=== PATIENT | female | born 1965 | race Caucasian/White ===

== ENCOUNTER → 2017-11-04 | Outpatient (CLI) | payer OTHER ==
[~2017-11-04] MED LIST: IBUP100S; Prilosec2.5 MG; VENL25; ZESTORETIC 20-121 EA
[2017-11-05 09:52] LABS: G. vaginalis (DNA Probe) Positive (NEGATIVE); T. vaginalis (DNA Probe) Negative (NEGATIVE)
[2017-11-05 09:53] LABS: Candida species (DNA Probe) Negative (NEGATIVE)
[2017-11-06 11:16] LABS: HPV Genotype 16 Detected (NOTDET); HPV Genotype 18 Not Detected (NOTDET)
[2017-11-10 10:42] LABS: HPV High Risk Other Detected (NOTDET)
[2017-11-10 12:26] LABS: Source CERV/ENDOCERV
== END ==
LOC: LAB 13:29 → LAB SHORT 13:29
PROVIDERS: Registered Nurse
DX: Z12.4 Encounter for screening for malignant neoplasm of cervix (principal); N89.8 Other specified noninflammatory disorders of vagina
CPT/HCPCS: 87480; 87510; 87624; 87660; G0123

== ENCOUNTER → 2018-12-02 | Outpatient (CLI) | payer OTHER | LOC: LAB SHORT 09:03 → PLD 09:03 | DX: M79.9 Soft tissue disorder, unspecified (principal) | CPT/HCPCS: 88304 ==

== ENCOUNTER → 2019-06-12 | Outpatient (CLI) | payer OTHER ==
[2019-06-15 14:32] LABS: Stool Occult Bld Immuno 1 Negative (NEGATIVE)
== END ==
LOC: LAB 14:00 → LAB SHORT 14:00
PROVIDERS: Nurse Practitioner Family
DX: Z12.11 Encounter for screening for malignant neoplasm of colon (principal)
CPT/HCPCS: G0328

== ENCOUNTER → 2019-12-27 | Outpatient (CLI) | payer OTHER | END | disposition home or self-care (01) | LOC: LAB 18:57 → LAB SHORT 18:57 | DX: M65.4 Radial styloid tenosynovitis [de Quervain] (principal) | CPT/HCPCS: 87077; 87086; 87186 ==

== ENCOUNTER → 2021-04-11 | Outpatient (CLI) | payer OTHER ==
[2021-04-12 09:59] LABS: Candida species (DNA Probe) Negative (NEGATIVE); G. vaginalis (DNA Probe) Negative (NEGATIVE); T. vaginalis (DNA Probe) Negative (NEGATIVE)
== END | disposition home or self-care (01) ==
LOC: LAB SHORT 17:50 → LAB 17:50
PROVIDERS: Nurse Practitioner Family
DX: N89.8 Other specified noninflammatory disorders of vagina (principal)
CPT/HCPCS: 87070; 87205; 87480; 87510; 87660

== ENCOUNTER 2021-11-20 10:27 | Day surgery (SDC) | payer BC, OTHER ==
[~2021-11-20] VITALS: Ht 170.2 cm; Wt 65.4 kg
[2021-11-20] MEDS ORDERED: BUSP5 (10:44)
[2021-11-20] MEDS ORDERED: Cymbalta20 MG (10:45)
--- NOTE | 2021-11-20 11:05 | NUR ---
History, Chart, Medications and Allergies reviewed before start of procedure. Patient confirms NPO status and agrees with scheduled surgery. Patient States Post-Procedure ride home has been arranged.
--- NOTE | 2021-11-20 11:15 | NUR ---
History, Chart, Medications and Allergies reviewed before start of procedure. Patient confirms NPO status and agrees with scheduled surgery. Patient States Post-Procedure ride home has been arranged with .
--- NOTE | 2021-11-20 11:34 | NUR ---
11/20/21 1134 Mely Rhodes History, Chart, Medications and Allergies reviewed before start of procedure. Patient confirms NPO status and agrees with scheduled surgery. 3-LEAD EKG REVIEWED WITH PHYSICIAN PRIOR TO START OF PROCEDURE. MONITOR INTACT WITH CONTINUOUS PULSE OXIMETRY AND INTERMITTENT BP. PATIENT DETERMINED TO BE ASA APPROPRIATE FOR PROPOFOL SEDATION PRIOR TO START OF PROCEDURE BY POM PLACED O2 @3L N/C
--- NOTE | 2021-11-20 13:23 | NUR ---
Discharge instructions reviewed with patient. Patient verbalizes understanding. Copy given to patient to take home. TOLERATING WATER WELL, NO C/O. VSS. Discharged via wheelchair to private car for ride home.
== END 2021-11-20 13:35 | disposition home or self-care (01) ==
LOC: ORSCMMR 10:27 → ORD 11:30 → ORSCMMR 11:30
PROVIDERS: Student in an Organized Health Care Education/Training Program
PROC: 0DB58ZX Excision of Esophagus, Via Natural or Artificial Opening Endoscopic, Diagnostic (ICD-10-PCS; principal; 2021-11-20 11:30)
PROC: 0DBK8ZX Excision of Ascending Colon, Via Natural or Artificial Opening Endoscopic, Diagnostic (ICD-10-PCS; principal; 2021-11-20 11:30)
PROC: 0DB48ZX Excision of Esophagogastric Junction, Via Natural or Artificial Opening Endoscopic, Diagnostic (ICD-10-PCS; principal; 2021-11-20 11:30)
PROC: 0DBM8ZX Excision of Descending Colon, Via Natural or Artificial Opening Endoscopic, Diagnostic (ICD-10-PCS; principal; 2021-11-20 11:30)
DX: R13.10 Dysphagia, unspecified (principal); K21.9 Gastro-esophageal reflux disease without esophagitis; Z80.0 Family history of malignant neoplasm of digestive organs; Z86.010 Personal history of colon polyps; D12.2 Benign neoplasm of ascending colon; K57.30 Diverticulosis of large intestine without perforation or abscess without bleeding; K59.09 Other constipation; I10 Essential (primary) hypertension; M79.7 Fibromyalgia; Z79.899 Other long term (current) drug therapy; Z12.11 Encounter for screening for malignant neoplasm of colon; Z87.891 Personal history of nicotine dependence
CPT/HCPCS: 88305; J2704; J7120

== ENCOUNTER → 2022-10-24 | Outpatient (CLI) | payer BC, OTHER ==
[~2022-10-24] MED LIST changes: +BUSP5; +Cymbalta20 MG
== END | disposition home or self-care (01) ==
LOC: LAB 10:00 → LAB SHORT 10:00
DX: R30.0 Dysuria (principal)
CPT/HCPCS: 87077; 87086; 87186

== ENCOUNTER → 2022-12-18 | Outpatient (CLI) | payer BC, OTHER | END | disposition home or self-care (01) | LOC: LAB SHORT 13:23 → LAB 13:23 | DX: N87.9 Dysplasia of cervix uteri, unspecified (principal) | CPT/HCPCS: 88305 ==

== ENCOUNTER 2023-04-19 14:28 | Emergency (ER) | payer BC ==
[~2023-04-19] VITALS: Ht 170.2 cm; Wt 65.8 kg
[2023-04-19 15:04] LABS: BASOPHILS ABSOLUTE AUTO 0.01 K/mm3 (0.00-0.23); BASOPHILS PERCENT AUTO 0 % (0-2); EOSINOPHILS ABSOLUTE AUTO 0.03 K/mm3 (0.00-0.68); EOSINOPHILS PERCENT AUTO 1 % (0-6); Hematocrit 20.9 % (33.0-51.0); Hemoglobin 7.1 g/dL (11.5-16.0); IMMATURE GRAN ABSOLUTE AUTO 0.01 K/mm3 (0.00-0.10); IMMATURE GRAN PERCENT AUTO 0 % (0-1); LYMPHOCYTES ABSOLUTE AUTO 0.32 K/mm3 (0.84-5.20); LYMPHOCYTES PERCENT AUTO 8 % (21-46); MONOCYTES ABSOLUTE AUTO 0.44 K/mm3 (0.16-1.47); MONOCYTES PERCENT AUTO 11 % (4-13); Mean Corpuscular HGB 31.1 pg (26.0-34.0); Mean Corpuscular Volume 92 fL (80-100); Mean Platelet Volume 8.7 fL (9.1-12.4); NEUTROPHILS ABSOLUTE AUTO 3.22 K/mm3 (1.96-9.15); NEUTROPHILS PERCENT AUTO 80 % (41-73); Platelet Count 213 K/mm3 (150-400); RDW Coefficient Variation 13.8 % (11.7-14.2); RDW Standard Deviation 44.2 fL (35.1-46.3); Red Blood Cell Count 2.28 M/mm3 (3.80-5.20); White Blood Cell Count 4.03 K/mm3 (4.00-11.30)
[2023-04-19 15:24] LABS: Alanine Aminotransfer (ALT/SGP 16 U/L (12-78); Albumin, Blood 3.5 g/dL (3.4-5.0); Albumin/Globulin Ratio 1.2 (0.8-1.8); Alk Phos 105 U/L (50-136); Anion Gap 5 mmol/L (6-16); Aspartate Aminotrans (AST/SGOT 16 U/L (12-37); Bilirubin, Total 0.2 mg/dL (0.1-1.0); Blood Urea Nitrogen 19 mg/dL (8-24); Bun/Creatinine Ratio 16.5 (12.0-20.0); CO2, Blood 27 mmol/L (21-32); Calcium, Blood 8.5 mg/dL (8.5-10.1); Chloride, Blood 106 mmol/L (98-108); Creatinine, Blood 1.15 mg/dL (0.40-1.00); Glomerular Filtration Rate 55 (60-); Glucose, Blood 125 mg/dL (70-99); Potassium, Blood 3.8 mmol/L (3.5-5.5); Sodium, Blood 138 mmol/L (136-145); Total Protein, Blood 6.5 g/dL (6.4-8.2)
[2023-04-19] MEDS ORDERED: Buspirone HCl15 MG (16:04)
[2023-04-19] MEDS ORDERED: CYMBALTA20 M2 PO (16:05)
[2023-04-19] MEDS ORDERED: EZETIMIBE10 M6 PO (16:05)
[2023-04-19] MEDS ORDERED: BACL10 PO (16:06)
[2023-04-19] MEDS ORDERED: LISI20 PO (16:06)
[2023-04-19] MEDS ORDERED: OMEP20ER PO (16:08)
[2023-04-19] MEDS ORDERED: HYDR1TAB94 PO (18:23)
[2023-04-19] MEDS ORDERED: CEPHALEXIN500 MG PO (18:23)
[2023-04-19 18:30] VITALS: BP 129/79
== END 2023-04-19 18:34 | disposition home or self-care (01) ==
LOC: ER 14:28
PROVIDERS: Student in an Organized Health Care Education/Training Program
DX: L03.115 Cellulitis of right lower limb (principal); L02.415 Cutaneous abscess of right lower limb; M25.461 Effusion, right knee; D64.9 Anemia, unspecified; R79.82 Elevated C-reactive protein (CRP); R70.0 Elevated erythrocyte sedimentation rate; I10 Essential (primary) hypertension; C53.9 Malignant neoplasm of cervix uteri, unspecified; M79.7 Fibromyalgia; Z79.899 Other long term (current) drug therapy
CPT/HCPCS: 10160; 80053; 85025; 85651; 86140; 96365-59; 96375-59; 99283-25; J0690; J1170; J2405

== ENCOUNTER → 2024-03-12 | Outpatient (CLI) | payer BC ==
[~2024-03-12] MED LIST changes: +BACL10 PO; +Buspirone HCl15 MG; +CEPHALEXIN500 MG PO; +CYMBALTA20 M2 PO; +EZETIMIBE10 M6 PO; +HYDR1TAB94 PO; +LISI20 PO; +OMEP20ER PO
[2024-03-12 11:30] LABS: Source, Urine Clean Catch
[2024-03-12 12:52] LABS: Appearance, Urine Clear (Clear); Bilirubin, Urine Neg (Neg); Blood, Urine Neg (Neg); Color, Urine Yellow (P-Yellow); Glucose Qualitative, Urine Neg (Neg); Ketones, Urine Neg (Neg); Leukocyte Esterase, Urine Neg (Neg); Nitrite, Urine Neg (Neg); Protein, Urine Neg (Neg); Urobilinogen, Urine NORM (Normal)
[2024-03-18 13:13] LABS: HPV HIGH RISK BY TMA Not Detected; HPV SOURCE Cervical/Vag
== END | disposition home or self-care (01) ==
LOC: LAB SHORT 11:23 → LAB 11:23
PROVIDERS: Obstetrics & Gynecology
DX: Z01.419 Encounter for gynecological examination (general) (routine) without abnormal findings (principal); R30.0 Dysuria
CPT/HCPCS: 81003; 87624; G0123

== ENCOUNTER 2024-04-09 12:02 | Day surgery (SDC) | payer BC ==
[2024-04-09] VITALS (30 sets, daily range): BP systolic 105–140; BP diastolic 78–97
[~2024-04-09] VITALS: Ht 170.2 cm; Wt 60.6 kg
[~2024-04-09 12:02] MED LIST changes: +FERROUS GLUCON324 M2 PO; +Lactated Ringer's 1,000 ML IV SCH
--- NOTE | 2024-04-09 12:19 | NUR ---
Ambulatory in Day Surgery History, Chart, Medications and Allergies reviewed before start of procedure. Pre-Op teaching done. Pt verbalizes understanding. Patient States Post-Procedure ride home has been arranged.
[2024-04-09] MEDS ORDERED: propofoL 60 ML IV ONE (12:24)
--- NOTE | 2024-04-09 12:56 | NUR ---
04/09/24 1256 Jalen Vital CONFIRMED AND REVIEWED H&P, MEDCICATIONS, ALLERGIES, MEDICAL HISTORY, RESPIRATORY HISTORY, VITAL SIGNS, 3-LEAD EKG, CONSENTS, AND PHYSICIAN ORDERS. PATIENT CONFIRMS NPO STATUS AND AGREES WITH SCHEDULED PROCEDURE. MONITOR INTACT WITH CONTINUOUS PULSE OXIMETRY, CAPNOGRAPHY, 3-LEAD EKG, INTERMITTENT BP. SUPPLEMENTAL O2 TO BE TITRATED THROUGHOUT PROCEDURE TO MAINTAIN O2 SATURATION ABOVE 90%. PATIENT DETERMINED TO BE ASA APPROPRIATE FOR PROPOFOL SEDATION PRIOR TO START OF PROCEDURE BY DR. ORELLANA. Bite Block Placed.
--- NOTE | 2024-04-09 14:14 | NUR ---
Patient up to Ambulate independently. Gait steady. Discharge instructions reviewed with patient. Patient verbalizes understanding. Copy given to patient to take home. Discharged via wheelchair to private car for ride home.
== END 2024-04-09 14:16 | disposition home or self-care (01) ==
LOC: ORSCMMR 12:02 → ORSCSDS 12:45 → ORSCMMR 13:15 → ORSCSDS 15:15
DX: D50.9 Iron deficiency anemia, unspecified (principal); Z80.0 Family history of malignant neoplasm of digestive organs; Z86.010 Personal history of colon polyps; K59.04 Chronic idiopathic constipation; Z79.899 Other long term (current) drug therapy
CPT/HCPCS: 88305; 88342; J2704; J7120

== ENCOUNTER 2024-04-14 12:16 | Day surgery (SDC) | payer BC ==
[~2024-04-14] VITALS: Ht 170.2 cm; Wt 62.1 kg
[~2024-04-14 12:16] MED LIST changes: +Balanced Salt Epinephrine Irrigation Solution 500 mL IR SCH; -Lactated Ringer's 1,000 ML IV SCH; +Lidocaine HCl/Pf 1% 5 ML VIAL XX SCH; +Moxifloxacin HCL 0.5 MG/0.1 ML 0.4MLSYR LEFTEYE SCH; +NS 500 ML IV ONE; +PHENYLEPHRINE\\TROPICAMIDE\\TETRACAINE OPHTHALMIC DILATING SOLN LEFTEYE PRN; +Povidone-Iodine 450 DROP/30 ML Solution LEFTEYE SCH; +Povidone-Iodine 450 DROP/30 ML Solution ONE; +Tetracaine HCl/Pf 0.5% Opth Soln 4 ml ONE
[2024-04-14] MEDS ORDERED: Midazolam HCl 1MG / ML 2ML Vial ONE (12:33)
[2024-04-14] MEDS ORDERED: FentaNYL Citrate 50 MCG/ML 2 ML Injection ONE (12:33)
[2024-04-14] MEDS ORDERED: NS 500 ML IV ONE ×2 (13:05→13:42)
[2024-04-14] MEDS ORDERED: Erythromycin 0.5% Opth Oint 1 gm ONE (13:38)
[2024-04-14 14:20] VITALS: BP 122/79
== END 2024-04-14 14:05 | disposition home or self-care (01) ==
LOC: ORSCSDS 12:16
PROVIDERS: Student in an Organized Health Care Education/Training Program
PROC: 08RK3JZ Replacement of Left Lens with Synthetic Substitute, Percutaneous Approach (ICD-10-PCS; principal; 2024-04-14 13:30)
DX: H25.813 Combined forms of age-related cataract, bilateral (principal); I10 Essential (primary) hypertension; H53.022 Refractive amblyopia, left eye; K21.9 Gastro-esophageal reflux disease without esophagitis; F41.9 Anxiety disorder, unspecified; Z79.899 Other long term (current) drug therapy; Z79.60 Long term (current) use of unspecified immunomodulators and immunosuppressants
CPT/HCPCS: A9270; J2250; J3010; J7040; V2632

== ENCOUNTER 2024-04-20 11:44 | Day surgery (SDC) | payer BC ==
[~2024-04-20] VITALS: Ht 170.2 cm; Wt 61.3 kg
[~2024-04-20 11:44] MED LIST changes: -Moxifloxacin HCL 0.5 MG/0.1 ML 0.4MLSYR LEFTEYE SCH; +Moxifloxacin HCL 0.5 MG/0.1 ML 0.4MLSYR RIGHTEYE SCH; -PHENYLEPHRINE\\TROPICAMIDE\\TETRACAINE OPHTHALMIC DILATING SOLN LEFTEYE PRN; +PHENYLEPHRINE\\TROPICAMIDE\\TETRACAINE OPHTHALMIC DILATING SOLN RIGHTEYE PRN; -Povidone-Iodine 450 DROP/30 ML Solution LEFTEYE SCH; +Povidone-Iodine 450 DROP/30 ML Solution RIGHTEYE SCH
[2024-04-20] MEDS ORDERED: NS 500 ML IV ONE ×2 (12:24→12:46)
[2024-04-20] MEDS ORDERED: Midazolam HCl 1MG / ML 2ML Vial ONE ×2 (12:39→12:48)
[2024-04-20] MEDS ORDERED: Erythromycin 0.5% Opth Oint 1 gm ONE (12:59)
[2024-04-20 13:20] VITALS: BP 116/79
== END 2024-04-20 13:32 | disposition home or self-care (01) ==
LOC: ORSCSDS 11:44
PROVIDERS: Student in an Organized Health Care Education/Training Program
PROC: 08RJ3JZ Replacement of Right Lens with Synthetic Substitute, Percutaneous Approach (ICD-10-PCS; principal; 2024-04-20 13:00)
DX: H25.811 Combined forms of age-related cataract, right eye (principal); I12.9 Hypertensive chronic kidney disease with stage 1 through stage 4 chronic kidney disease, or unspecified chronic kidney disease; N18.9 Chronic kidney disease, unspecified; Z79.899 Other long term (current) drug therapy
CPT/HCPCS: A9270; J2250; J7040; V2632

== ENCOUNTER 2024-07-01 06:05 | Day surgery (SDC) | payer BC ==
[~2024-07-01] VITALS: Ht 170.2 cm; Wt 62.7 kg
[~2024-07-01 06:05] MED LIST changes: -Balanced Salt Epinephrine Irrigation Solution 500 mL IR SCH; -Lidocaine HCl/Pf 1% 5 ML VIAL XX SCH; -Moxifloxacin HCL 0.5 MG/0.1 ML 0.4MLSYR RIGHTEYE SCH; -NS 500 ML IV ONE; -PHENYLEPHRINE\\TROPICAMIDE\\TETRACAINE OPHTHALMIC DILATING SOLN RIGHTEYE PRN; -Povidone-Iodine 450 DROP/30 ML Solution ONE; -Povidone-Iodine 450 DROP/30 ML Solution RIGHTEYE SCH; -Tetracaine HCl/Pf 0.5% Opth Soln 4 ml ONE
[2024-07-01] MEDS ORDERED: Tranexamic Acid 100 ML IV ONE ×2 (06:20→09:43)
[2024-07-01] MEDS ORDERED: NS 50 ML IV ONE (06:24)
[2024-07-01] MEDS ORDERED: Acetaminophen 500 MG Tab ONE (06:24)
[2024-07-01] MEDS ORDERED: OxyCODONE HCL 10 MG TABCR ONE (06:24)
[2024-07-01] MEDS ORDERED: CeFAZolin Sodium 2,000 MG VIAL ONE (06:24)
[2024-07-01] MEDS ORDERED: Lactated Ringer's 1,000 ML IV ONE ×3 (06:57→11:25)
[2024-07-01] MEDS ORDERED: EPINEPhrine HCl 1 MG/ML 1ML Amp ONE (07:16)
[2024-07-01] MEDS ORDERED: Midazolam HCl 1MG / ML 2ML Vial ONE (07:16)
[2024-07-01] MEDS ORDERED: FentaNYL Citrate 50 MCG/ML 2 ML Injection ONE (07:35)
[2024-07-01] MEDS ORDERED: propofoL 20 ML IV ONE (07:35)
[2024-07-01] MEDS ORDERED: Dexamethasone Sod Phos 10 MG/ML 1ML VIAL ONE (07:45)
[2024-07-01] MEDS ORDERED: Ondansetron HCl 2 MG / ML 2ML Vial ONE (07:45)
[2024-07-01] MEDS ORDERED: Phenylephrine HCl 10mg/ml 1 ml Vial ONE (07:46)
--- NOTE | 2024-07-01 07:54 | NUR ---
07/01/24 0754 Sharri Melissa LATE ENTRY; PT CAME IN TODAY WITH REDNESS AND BRUSING ON BOTTOM JAW AND CHIN R/T RECENT DENTAL SURGERY. MO AND DR ARCHER NOTIFIED. ONCE PT WAS IN THE PRE OP ROOM SHE ADMITTED TO HAVING MRSA IN DECEMBER. ISOLATION CART BROUGHT TO PT ROOM AND ISOLATION PROTOCOL INITIATED. DR ARCHER ADVISED PT TO DO ROM ELBOW AND HAND EXERCISES TODAY. HE ALSO ADVISED PT TO BEGIN PENDULUM EXERCISES TODAY.
--- NOTE | 2024-07-01 08:12 | NUR ---
07/01/24 0812 Mckayla Banks FIRST DOSE OF TXA STARTED BY JUANITA MONTALVO AT 0750.
[2024-07-01] MEDS ORDERED: Sugammadex Sodium 200 MG/2ML SDV (100 MG/ML) ONE (08:54)
[2024-07-01] MEDS ORDERED: Bupivacaine 0.5% HCl 5 MG/ML 30MLVIAL ONE (09:04)
[2024-07-01 09:51] VITALS: BP 103/70
--- NOTE | 2024-07-01 11:57 | NUR ---
07/01/24 1157 Barrera Bernabe PT DENIED SOB, DIZZINES, CP, NAUSEA AND OTHER CARDIAC SYMPTOMS. 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
== END 2024-07-01 11:35 | disposition home or self-care (01) ==
LOC: ORSCSDS 06:05
PROVIDERS: Orthopaedic Surgery
PROC: 0RRJ00Z Replacement of Right Shoulder Joint with Reverse Ball and Socket Synthetic Substitute, Open Approach (ICD-10-PCS; principal; 2024-07-01 07:30)
DX: M19.011 Primary osteoarthritis, right shoulder (principal); I10 Essential (primary) hypertension; Z85.41 Personal history of malignant neoplasm of cervix uteri; Z87.891 Personal history of nicotine dependence; Z79.899 Other long term (current) drug therapy
CPT/HCPCS: 73030; A9270; C1713; C1776; J0171; J0690; J1100; J2250; J2371; J2405; J2704; J3010; J7120

== ENCOUNTER 2025-06-02 08:47 | Day surgery (SDC) | payer BC | END 2025-06-02 14:25 | disposition home or self-care (01) | LOC: ORSCSDS 08:47 | PROC: 0RRK00Z Replacement of Left Shoulder Joint with Reverse Ball and Socket Synthetic Substitute, Open Approach (ICD-10-PCS; principal; 2025-06-02) | DX: M19.012 Primary osteoarthritis, left shoulder (principal); M75.102 Unspecified rotator cuff tear or rupture of left shoulder, not specified as traumatic; I10 Essential (primary) hypertension; Z79.899 Other long term (current) drug therapy; C53.9 Malignant neoplasm of cervix uteri, unspecified; F41.9 Anxiety disorder, unspecified ==